=== PATIENT | female | born 1995 | race Two or more races ===

== ENCOUNTER 2022-10-18 19:29 | Emergency (ER) | payer MEDICAID, OTHER ==
[~2022-10-18] VITALS: Ht 172.7 cm; Wt 81.0 kg
[2022-10-18 20:09] LABS: Basophils # (auto) 0 10 ^3/uL (0-0.2); Basophils % (auto) 0.8 % (0.0-2.0); Eosinophils # (auto) 0.1 10 ^3/uL (0-0.8); Eosinophils % (auto) 1.2 % (0.0-7.0); Hematocrit 42.6 % (36.0-46.0); Hemoglobin 14.5 g/dL (12.2-16.2); Lymphocytes # (auto) 1.6 10 ^3/uL (0.4-5.4); Lymphocytes % (auto) 29.7 % (10.0-50.0); Mean Corpuscular Hemoglobin 30.2 pg (28.0-32.0); Mean Corpuscular Volume 88.7 fL (80.0-100.0); Monocytes # (auto) 0.4 10 ^3/uL (0-1.3); Monocytes % (auto) 7.3 % (0.0-12.0); Neutrophils # (auto) 3.4 10 ^3/uL (1.6-8.6); Red Cell Distribution Width 12.8 % (11.8-14.3); White Blood Cell 5.5 10^3/uL (4.4-10.8)
[2022-10-18 20:20] LABS: Albumin 4.6 g/dL (3.4-5.0); Calcium 8.9 mg/dL (8.5-10.1); Potassium 3.6 mmol/L (3.5-5.1)
[2022-10-18 20:25] LABS: BUN/Creatinine Ratio 12.7 (10.0-20.0); Bilirubin, Total 0.5 mg/dL (0.2-1.0); Total Protein 8.3 g/dL (6.4-8.2)
[2022-10-18 21:00] LABS: Urine Bacteria FEW /hpf (None Seen); Urine Blood TRACE /uL (Negative); Urine Mucus FEW (None Seen); Urine Specific Gravity 1.025 (1.001-1.035); Urine WBC <1 /hpf (0 - 5)
[2022-10-18] MEDS ORDERED: IOHEXOL 350 MG/ML 100ML IJ ONE (23:04)
[2022-10-19 00:14] VITALS: BP 128/93
== END 2022-10-19 00:13 | disposition home or self-care (01) ==
LOC: ER 19:32
DX: R20.1 Hypoesthesia of skin (principal); R42 Dizziness and giddiness; R10.2 Pelvic and perineal pain
CPT/HCPCS: 36415; 70450; 70496; 80053; 81001; 84436; 84443; 84480; 84484; 84702; 85025; 93005; 99285; Q9967

== ENCOUNTER 2024-12-27 13:22 | Emergency (ER) | payer MEDICAID, OTHER ==
[~2024-12-27] VITALS: Ht 172.7 cm; Wt 80.5 kg
[2024-12-27 13:24] VITALS: BP 141/101; PULSE 87; RESP 18; TEMP 98; O2SAT 96
[2024-12-27] MEDS: LIDOCAINE 1% HCL (LOCAL ANESTH.) INJ 20ML MDV ID ONE (13:36)
[2024-12-27] MEDS: LIDOCAINE 1% HCL (LOCAL ANESTH.) INJ 20ML MDV ONE (13:36)
--- NOTE | 2024-12-27 13:39 | ED.PDOC ---
Musculoskeletal HPI Comments A 29 YEAR OLD FEMALE PRESENTS TO THE ED WITH COMPLAINT OF LEFT GREAT TOENAIL INJURY. PATIENT STATES HER LEFT GREAT TOE WAS HIT BY A SOCCER BALL AND HER TOENAIL WAS INJURED A RESULT. PATIENT REPORTS SHE IS NOW EXPERIENCING LEFT GREAT TOE PAIN. PATIENT DENIES FEVER, CHILLS, SHORTNESS OF BREATH, CHEST PAIN, ABDOMINAL PAIN, NAUSEA, VOMITING, HEADACHE, OR OTHER COMPLAINTS. NO OTHER SYMPTOMS OR MODIFYING FACTORS AT THIS TIME. PATIENT IS ALERT, ORIENTED X 4, AND HAS STEADY GAIT. Chief Complaint: Lower Extremity Time Seen by MD: 13:27 Reviewed Notes: Nurses Notes, Medications, Allergies Allergies: Coded Allergies: NO KNOWN ALLERGIES (Unverified , 10/18/22) Information Source: Patient Mode of Arrival: Wheelchair Location: Left Extremity Location: Great Toe Timing: Hours Prehospital treatment: None Severity: Moderate Able to Move Extremity: Yes Bear Weight: Fully Pain: Moderate Mechanism: Blunt Trauma Circumstances: Sporting, Playing Onset of Symptoms: After Trauma Symptoms: Pain DVT Risk Factors: NONE Last Tetanus: Unknown Associated signs and symptoms: None Past Medical History PAST MEDICAL HISTORY: Anxiety, Thyroid Surgical History: Denies all surgeries PATIENT RELATIONS COORDINATOR History: Denies all PATIENT RELATIONS COORDINATOR Hx Family History Family History: Reviewed,noncontributory to illness, Family hx of DM, Family hx of HTN Social History Smoker: Non-Smoker Alcohol: Denies ETOH Use Drugs: Denies Drug Use Lives In: Home Constitutional: denies: chills, diaphoresis, fatigue, fever, malaise, sweats, weakness, others EENTM: denies: blurred vision, double vision, ear bleeding, ear discharge, ear drainage, ear pain, ear ringing, eye pain, eye redness, hearing loss, mouth pain, mouth swelling, nasal discharge, nose bleeding, nose congestion, nose pain, photophobia, tearing, throat pain, throat swelling, voice changes, others Respiratory: denies: cough, hemoptysis, orthopnea, SOB at rest, shortness of breath, SOB with excertion, stridor, wheezing, others Cardiovascular: denies: chest pain, dizzy spells, diaphoresis, Dyspnea on exertion, edema, irregular heart beat, left arm pain, lightheadedness, palpitations, PND, syncope, others Gastrointestinal: denies: abdomen distended, abdominal pain, blood streaked bowels, constipated, diarrhea, dysphagia, difficulty swallowing, hematemesis, melena, nausea, poor appetite, poor fluid intake, rectal bleeding, rectal pain, vomiting, others Genitourinary: denies: abnormal vagina bleeding, burning, dyspareunia, dysuria, flank pain, frequency, hematuria, incontinence, pain, , vagina discharge, urgency, others Neurological: denies: dizziness, fainting, headache, left sided numbness, left sided weakness, numbness, paresthesia, pre-existing deficit, right sided numbness, right sided weakness, seizure, speech problems, tingling, tremors, weakness, others Musculoskeletal: reports: others (LEFT GREAT TOE PAIN); denies: back pain, gout, joint pain, joint swelling, muscle pain, muscle stiffness, neck pain Integumetry: denies: bruises, change in color, change in hair/nails, dryness, laceration, lesions, lumps, rash, wounds, others Allergic/Immunocompromised: denies: Difficulty Healing, Frequent Infections, Hives, Itching, others Hematologic/Lymphatic: denies: anemia, blood clots, easy bleeding, easy bruising, swollen glands, others Endocrine: denies: excessive hunger, excessive sweating, excessive thirst, excessive urination, flushing, intolerance to cold, intolerance to heat, unexplained weight gain, unexplained weight loss, others Psychiatric: denies: anxiety, bipolar disorder, depression, hopeless, panic disorder, schizophrenia, sleepless, suicidal, others All Other Systems: Reviewed and Negative Physical Exam General Appearance: Mild Distress, Normal, Other (ANXIETY ) HEENT: Normal ENT Inspection, PERRL/EOMI, Pharynx Normal, TMs Normal Neck: Full Range of Motion, Non-Tender, Normal, Normal Inspection Respiratory: Chest Non-Tender, Lungs Clear, No Accessory Muscle Use, No Respiratory Distress, Normal Breath Sounds Cardiovascular: No Edema, No JVD, No Murmur, No Gallop, Normal Peripheral Pulses, Regular Rate/Rhythm Breast Exam: Deferred Gastrointestinal: No Organomegaly, Non Tender, No Pulsatile Mass, Normal Bowel Sounds, Soft Genitalia: Deferred Pelvic: Deferred Rectal: Deferred Extremities: No calf tenderness, Normal capillary refill, Normal range of motion, No pedal edema, Tender (WITH NAIL INJURY ON LEFT GREAT TOE, NO BONY TENDERNESS, SWELLING AND DEFORMITY. 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 ) Peripheral Pulses: 2+ carotid (R), 2+ carotid (L), 2+ dorsalis pedis (R), 2+ dorsalis pedis (L) Lymphatic: No Adenopathy Was a procedure done? Was a procedure done?: Yes Sedation Sedation?: No Nail Removal Nail Removal Location: 1st Toe nail Nail Removal preparation: Saline, by Irrigation Nail Removal Anesthetic: Lidocaine, Without epi, Digital nerve block Wound Complexity: Full Informed Consent: No Risks/Benefits/alt. described: Yes Differential Diagnosis EXT Differential Diagnosis: Fracture, Sprain, Contusion, Strain Other Differential Diagnosis TOENAIL INJURY X-Ray, Labs, Meds, VS Vital Signs Date Time Temp Pulse Resp B/P (MAP) Pulse Ox O2 Delivery O2 Flow Rate FiO2 12/27/24 13:24 98.0 87 18 141/101 96 98.0 Current Medications Medications (Trade) Dose Ordered Sig/Anders Route Start Time Stop Time Status Last Admin Acetaminophen/ Hydrocodone Bitart (Addison 5/325MG Tab) 1 tab ONCE ONCE PO 12/27/24 13:45 12/27/24 13:46 DC 12/27/24 13:45 X-Ray, Labs, Meds, VS Comment EXTERNAL MEDICAL RECORDS REVIEWED: [NONE] INDEPENDENT HISTORIANS: [NONE] SOCIAL DETERMINANTS OF HEALTH: [NONE] LABS ORDERED: NONE REVIEWED AND INTERPRETED RESULTS: NONE IMAGING ORDERED: NONE TREATMENTS ORDERED: TOENAIL REMOVAL, SEE PROCEDURE SECTION. NORCO 5/325MG PO PROCEDURES PERFORMED: TOENAIL REMOVAL, SEE PROCEDURE SECTION. CRITICAL CARE TIME: NONE I HAVE DISCUSSED THE PATIENT WITH THE ATTENDING PHYSICIAN, DR. BIRCH HE AGREES WITH THE PATIENT'S PLAN OF CARE AND DISPOSITION. BASED ON HISTORY OF PRESENT ILLNESS, AND PHYSICAL EXAM, PATIENT WILL BE DISCHARGED HOME. SHARED DECISION MAKING: DISCUSSED WITH PATIENT THAT THEIR WORKUP WAS NORMAL. PATIENT INSTRUCTED TO FOLLOW UP WITH PRIMARY CARE PROVIDER IN 1-2 DAYS FOR RE- EVALUATION OF SYMPTOMS. PATIENT VERBALIZES UNDERSTANDING TO RETURN TO ED FOR NEW OR WORSENING SYMPTOMS OR IF FOLLOW UP WITH PCP CANNOT BE OBTAINED. PATIENT FEELS COMFORTABLE GOING HOME AT THIS TIME. ALL QUESTIONS ADDRESSED AT TIME OF DISCHARGE. Time of 1ST Reevaluation: 14:18 Reevaluation 1ST: Improved Patient Education/Counseling: Diagnosis, Treatment, Need For Follow Up Family Education/Counseling: Diagnosis, Treatment, Need For Follow Up Medical Screening: No EMC Exist At This Time Departure 1 Departure Time of Disposition: 14:18 Impression: Primary Impression: Injury of toenail of left foot Qualified Codes: S99.922A - Unspecified injury of left foot, initial encounter Disposition: HOME / SELF CARE / HOMELESS Condition: Stable Additional Instructions: FOLLOW-UP WITH PCP IN 1 TO 2 DAYS. TAKE MEDICATIONS PRESCRIBED. RETURN TO ED FOR ANY NEW OR WORSENING SYMPTOMS. Discharged With: Self, Relative Critical Care Note Critical Care Time?: No Stability Stability form required: No I personally scribed for KRYSTYNA CALVO ([email or web address]) on 12/27/24 at 13:39. Electronically submitted by Claudy Carter ([email or web address]). I personally scribed for KRYSTYNA CALVO ([email or web address]) on 12/27/24 at 13:42. Electronically submitted by Claudy Carter ([email or web address]). KRYSTYNA CALVO Dec 27, 2024 13:39
[2024-12-27] MEDS: HYDROcodone-ACET 5/325MG TAB PO ONE (13:45)
== END 2024-12-27 13:47 | disposition home or self-care (01) ==
LOC: ER 13:22
DX: S99.822A Other specified injuries of left foot, initial encounter (principal); E03.9 Hypothyroidism, unspecified; F41.9 Anxiety disorder, unspecified; W21.02XA Struck by soccer ball, initial encounter; Y93.89 Activity, other specified; Y92.89 Other specified places as the place of occurrence of the external cause; Y99.8 Other external cause status
CPT/HCPCS: 11730; 99284; J2003

== ENCOUNTER 2025-03-14 11:43 | Emergency (ER) | payer OTHER ==
[~2025-03-14] VITALS: Ht 172.7 cm; Wt 98.1 kg
--- NOTE | 2025-03-14 12:11 | ED.PDOC ---
HPI Comments A 29 YEAR OLD FEMALE PRESENTS TO THE ED WITH COMPLAINT OF LACERATION OF LEFT WRIST. PATIENT STATES SHE WAS CLIMBING THROUGH HER WINDOW AND THE GLASS ACCIDENTALLY BROKE CAUSING CUT HER LEFT WRIST ON A PIECE OF BROKEN GLASS. BLEEDING IS CONTROLLED AT THIS TIME. PATIENT DENIES FEVER, CHILLS, SHORTNESS OF BREATH, CHEST PAIN, ABDOMINAL PAIN, NAUSEA, VOMITING, HEADACHE, OR OTHER COMPLAINTS. NO OTHER SYMPTOMS OR MODIFYING FACTORS AT THIS TIME. PATIENT IS ALERT, ORIENTED X 4, AND HAS STEADY GAIT. Chief Complaint: Laceration Time Seen by MD: 11:55 Reviewed Notes: Nurses Notes, Medications, Allergies Allergies: Coded Allergies: NO KNOWN ALLERGIES (Unverified , 10/18/22) Information Source: Patient Mode of Arrival: Ambulatory Severity: Moderate Severity of Laceration: Controlled Bleeding Complexity: Simple Timing: Hours Prehospital treatment: None Laceration Location: Other (LEFT WRIST) Mechanism: Glass Last Tetanus: > 5 Years Laceration Length (cm): 3 Skin Type: Linear Depth of Injury: Skin, SQ Tendon Injury: 0% Capillary Refill: < 3 seconds Tender: Mild Discharge: None Erythema: None Associated Signs and Symptoms: None Past Medical History PAST MEDICAL HISTORY: Anxiety, Thyroid Surgical History: Denies all surgeries SHAREPOINT ARCHITECT History: Denies all SHAREPOINT ARCHITECT Hx Family History Family History: Reviewed,noncontributory to illness, Family hx of DM, Family hx of HTN Social History Smoker: Non-Smoker Alcohol: Denies ETOH Use Drugs: Denies Drug Use Lives In: Home Constitutional: denies: chills, diaphoresis, fatigue, fever, malaise, sweats, weakness, others EENTM: denies: blurred vision, double vision, ear bleeding, ear discharge, ear drainage, ear pain, ear ringing, eye pain, eye redness, hearing loss, mouth pain, mouth swelling, nasal discharge, nose bleeding, nose congestion, nose pain, photophobia, tearing, throat pain, throat swelling, voice changes, others Respiratory: denies: cough, hemoptysis, orthopnea, SOB at rest, shortness of breath, SOB with excertion, stridor, wheezing, others Cardiovascular: denies: chest pain, dizzy spells, diaphoresis, Dyspnea on exertion, edema, irregular heart beat, left arm pain, lightheadedness, palpitations, PND, syncope, others Gastrointestinal: denies: abdomen distended, abdominal pain, blood streaked bowels, constipated, diarrhea, dysphagia, difficulty swallowing, hematemesis, melena, nausea, poor appetite, poor fluid intake, rectal bleeding, rectal pain, vomiting, others Genitourinary: denies: abnormal vagina bleeding, burning, dyspareunia, dysuria, flank pain, frequency, hematuria, incontinence, pain, , vagina discharge, urgency, others Neurological: denies: dizziness, fainting, headache, left sided numbness, left sided weakness, numbness, paresthesia, pre-existing deficit, right sided numbness, right sided weakness, seizure, speech problems, tingling, tremors, weakness, others Musculoskeletal: denies: back pain, gout, joint pain, joint swelling, muscle pain, muscle stiffness, neck pain, others Integumetry: reports: laceration (LACERATION OF LEFT WRIST); denies: bruises, change in color, change in hair/nails, dryness, lesions, lumps, rash, wounds, others Allergic/Immunocompromised: denies: Difficulty Healing, Frequent Infections, Hives, Itching, others Hematologic/Lymphatic: denies: anemia, blood clots, easy bleeding, easy bruising, swollen glands, others Endocrine: denies: excessive hunger, excessive sweating, excessive thirst, excessive urination, flushing, intolerance to cold, intolerance to heat, unexplained weight gain, unexplained weight loss, others Psychiatric: denies: anxiety, bipolar disorder, depression, hopeless, panic disorder, schizophrenia, sleepless, suicidal, others All Other Systems: Reviewed and Negative Physical Exam General Appearance: No Apparent Distress, Normal HEENT: Normal ENT Inspection, PERRL/EOMI, Pharynx Normal, TMs Normal Neck: Full Range of Motion, Non-Tender, Normal, Normal Inspection Respiratory: Chest Non-Tender, Lungs Clear, No Accessory Muscle Use, No Respiratory Distress, Normal Breath Sounds Cardiovascular: No Edema, No JVD, No Murmur, No Gallop, Normal Peripheral Pulses, Regular Rate/Rhythm Breast Exam: Deferred Gastrointestinal: No Organomegaly, Non Tender, No Pulsatile Mass, Normal Bowel Sounds, Soft Genitalia: Deferred Pelvic: Deferred Rectal: Deferred Extremities: No calf tenderness, Normal capillary refill, Normal range of motion, No pedal edema, Tender (AND LACERATION ON LEFT VOLAR WRIST, NO BONY TENDERNESS, SWELLING AND DEFORMITY. 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 ), Normal Color, Warm Peripheral Pulses: 2+ carotid (R), 2+ carotid (L), 2+ Radial (R), 2+ Radial (L) Lymphatic: No Adenopathy Was a procedure done? Was a procedure done?: Yes Sedation Sedation?: No Laceration Repair : Location LEFT WRIST Length 3CM Anesthetic: Lidocaine, Without epi Laceration Repair Prep: Saline Laceration Repair Wound Comple: epidermis/dermis repair Laceration Repair: Number of sutures (6), Skin, SQ, Size (4-0 ETHILON), Nylon, Simple, Bacitracin, Gauze Informed consent obtained: No Risks, benefits, and alternati: Yes Images 1 - Differential diagnosis Generic Laceration: Abrasion/Contusion, Laceration, Avulsion Differential Diagnosis: N/A X-Ray, Labs, Meds, VS Vital Signs Date Time Temp Pulse Resp B/P (MAP) Pulse Ox O2 Delivery O2 Flow Rate FiO2 03/14/25 11:50 98.4 100 16 148/104 98 98.4 X-Ray, Labs, Meds, VS Comment EXTERNAL MEDICAL RECORDS REVIEWED: [NONE] INDEPENDENT HISTORIANS: [NONE] SOCIAL DETERMINANTS OF HEALTH: [NONE] LABS ORDERED: NONE REVIEWED AND INTERPRETED RESULTS: NONE IMAGING ORDERED: NONE TREATMENTS ORDERED: TETANUS 0.5 ML IM PROCEDURES PERFORMED: LACERATION REPAIR, SEE PROCEDURE SECTION. CRITICAL CARE TIME: NONE I HAVE DISCUSSED THE PATIENT WITH THE ATTENDING PHYSICIAN DR. BIRCH AND HE AGREES WITH THE PATIENT'S PLAN OF CARE AND DISPOSITION. BASED ON HISTORY OF PRESENT ILLNESS, AND PHYSICAL EXAM, PATIENT WILL BE DISCHARGED HOME. SHARED DECISION MAKING: PATIENT INSTRUCTED TO FOLLOW UP WITH PRIMARY CARE PROVIDER IN 1-2 DAYS FOR RE-EVALUATION OF SYMPTOMS. PATIENT VERBALIZES UNDERSTANDING TO RETURN TO ED FOR NEW OR WORSENING SYMPTOMS OR IF FOLLOW UP WITH PCP CANNOT BE OBTAINED. PATIENT FEELS COMFORTABLE GOING HOME AT THIS TIME. ALL QUESTIONS ADDRESSED AT TIME OF DISCHARGE. Time of 1ST Reevaluation: 12:30 Reevaluation 1ST: Improved Patient Education/Counseling: Diagnosis, Treatment, Need For Follow Up Family Education/Counseling: Diagnosis, Treatment, Need For Follow Up Medical Screening: No EMC Exist At This Time Departure 1 Departure Time of Disposition: 12:30 Impression: Primary Impression: Laceration of left wrist Qualified Codes: S61.512A - Laceration without foreign body of left wrist, initial encounter Disposition: HOME / SELF CARE / HOMELESS Condition: Stable Additional Instructions: FOLLOW-UP WITH PCP IN 1 TO 2 DAYS. RETURN TO ED FOR ANY NEW OR WORSENING SYMPTOMS. Discharged With: Self Critical Care Note Critical Care Time?: No Stability Stability form required: No I personally scribed for KRYSTYNA CALVO ([email or web address]) on 03/14/25 at 12:10. Electronically submitted by Claudy Carter ([email or web address]). KRYSTYNA CALVO Mar 14, 2025 12:10
[2025-03-14] MEDS: TETANUS-DIPTH-ACEL PERTUSSIS 0.5ML SYR Tdap IM ONE (12:14)
[2025-03-14 12:18] VITALS: BP 148/104; PULSE 100; RESP 16; TEMP 98.4; O2SAT 98
== END 2025-03-14 12:20 | disposition home or self-care (01) ==
LOC: ER 11:43
DX: S61.512A Laceration without foreign body of left wrist, initial encounter (principal); F41.9 Anxiety disorder, unspecified; W25.XXXA Contact with sharp glass, initial encounter; Y93.89 Activity, other specified; Y92.89 Other specified places as the place of occurrence of the external cause; Y99.8 Other external cause status
CPT/HCPCS: 12042; 90471; 90715; 99284; A4649